=== PATIENT | female | born 1970 | race African-American/Black ===

== ENCOUNTER 2017-07-08 07:49 | Emergency (ER) | payer OTHER ==
[~2017-07-08] VITALS: Ht 180.3 cm; Wt 103.2 kg
[~2017-07-08 07:49] MED LIST: HYDR-2768 PO; ROSU10 PO
[2017-07-08 07:50] VITALS: BP 145/79; PULSE 124; RESP 20; TEMP 101; O2SAT 93
[2017-07-08] MEDS ORDERED: HYDR20TA PO (08:08)
[2017-07-08] MEDS ORDERED: DESM1TAB15 PO (08:08)
[2017-07-08] MEDS ORDERED: LEVO25TA4 PO (08:08)
--- NOTE | 2017-07-08 08:10 | PD ---
HPI Chief Complaint: ENT Complaint Time Seen by Provider: 08:00 Travel History International Travel<30 days: No Contact w/Intl Traveler<30days: No Traveled to known affect area: No History of Present Illness HPI This 47-year-old female is complaining of sore throat and fever. His been sick for a couple of days. This morning she was nauseated and she vomited at work. She works as a flight technician at the dialysis center. She has not been coughing. 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 She is not nauseated now PFSH Past Medical History Autoimmune Disease: No Cancer: No Cardiovascular Problems: Yes High Cholesterol: Yes Diabetes: No Endocrine: Yes (pituitary) Glaucoma: No Genitourinary: Yes Hepatitis: No Hiatal Hernia: No Hypertension: Yes Immune Disorder: No Musculoskeletal: No Neurologic: No Psychiatric: No Reproductive: No Respiratory: Yes (ASTHMA YOUTH) Immunizations Current: Yes Thyroid Disease: No ?: Not Past Surgical History Section: Yes (x2) Endocrine Surgery: Yes (pituitary mass removed) Gynecologic Surgery: Yes (C SECTION X2) Social History Alcohol Use: Yes (rare) Tobacco Use: No Substance Use: No Allergies-Medications (Allergen,Severity, Reaction): Coded Allergies: penicillin G (Unverified Allergy, Unknown, A CHILD, 07/08/17) Reported Meds & Prescriptions Reported Meds & Active Scripts Active Reported Desmopressin (Desmopressin Acetate) 0.1 Mg Tab 0.1 Mg PO BID Levothyroxine (Levothyroxine Sodium) 25 Mcg Tab 25 Mcg PO DAILY Hydrocortisone 20 Mg Tab 20 Mg PO BID Take with food to decrease GI upset Review of Systems General / Constitutional: Positive: Fever, Chills Eyes: No: Diploplia, Blurred Vision HENT: Positive: Sore Throat, No: Headaches Cardiovascular: No: Chest Pain or Discomfort, Palpitations Respiratory: No: Cough, Shortness of Breath Gastrointestinal: Positive: Vomiting Genitourinary: No: Urgency, Frequency Musculoskeletal: No: Myalgias Skin: No Rash, No Itching Neurologic: No: Weakness, Dizziness Hematologic/Lymphatic: No: Easy Bruising Physical Exam Narrative GENERAL: Well-developed female SKIN: Focused skin assessment warm/dry. HEAD: Atraumatic. Normocephalic. EYES: Pupils equal and round. No scleral icterus. No injection or drainage. ENT: No nasal bleeding or discharge. Mucous membranes pink and moist. Posterior is pharynx is erythematous with white exudate NECK: Trachea midline. No JVD. CARDIOVASCULAR: Regular rate and rhythm. No murmur appreciated. RESPIRATORY: No accessory muscle use. Clear to auscultation. Breath sounds equal bilaterally. GASTROINTESTINAL: Abdomen soft, non-tender, nondistended. Hepatic and splenic margins not palpable. MUSCULOSKELETAL: No obvious deformities. No clubbing. No cyanosis. No edema. NEUROLOGICAL: Awake and alert. No obvious cranial nerve deficits. Motor grossly within normal limits. Normal speech. PSYCHIATRIC: Appropriate mood and affect; insight and judgment normal. Data Data Last Documented VS Vital Signs Date Time Temp Pulse Resp B/P (MAP) Pulse Ox O2 Delivery O2 Flow Rate FiO2 07/08/17 07:50 101.0 124 20 145/79 (101) 93 Orders Orders Group A Rapid Strep Screen (07/08/17 08:06) Influenzae A/B Antigen (07/08/17 08:06) Acetaminophen (Tylenol) (07/08/17 08:15) Ibuprofen (Motrin) (07/08/17 08:15) Strep Culture (Group A) (07/08/17 08:13) MDM Medical Decision Making Medical Screen Exam Complete: Yes Emergency Medical Condition: Yes Medical Record Reviewed: Yes Differential Diagnosis Differential includes strep throat, pharyngitis, viral syndrome, influenza Narrative Course History influenza is negative. Test for strep is negative. I am going to cover her with Keflex. Diagnosis Primary Impression: Pharyngitis Scripts Cephalexin (Keflex) 500 Mg Capsule 500 MG PO Q6H for Infection for 10 Days, #40 CAP 0 Refills Prov: Shin Hampton MD 07/08/17 Disposition: 01 DISCHARGE HOME Condition: Stable Shin Hampton MD Jul 08, 2017 08:10
[2017-07-08] MEDS ORDERED: ACETAMINOPHEN 325 MG TAB PO ONE (08:15)
[2017-07-08] MEDS ORDERED: IBUPROFEN 600 MG TAB PO ONE (08:15)
[2017-07-08] MEDS ORDERED: CEPH-460 PO (09:35)
[2017-07-08 10:13] VITALS: PULSE 116; RESP 16; TEMP 98.5; O2SAT 99
== END 2017-07-08 10:23 | disposition home or self-care (01) ==
LOC: PHED 07:49
DX: J02.9 Acute pharyngitis, unspecified (principal); E78.00 Pure hypercholesterolemia, unspecified; I10 Essential (primary) hypertension
CPT/HCPCS: 87081; 87804; 87880; 99283